=== PATIENT | male | born 1990 | race African-American/Black ===

== ENCOUNTER 2017-12-07 08:38 | Emergency (ER) | payer SELFPAY | END 2017-12-07 11:50 | disposition home or self-care (01) | LOC: D.ER 08:38 | DX: J11.1 Influenza due to unidentified influenza virus with other respiratory manifestations (principal) ==

== ENCOUNTER 2018-11-12 09:04 | Emergency (ER) | payer OTHER ==
[~2018-11-12] VITALS: Ht 167.6 cm; Wt 79.5 kg
[2018-11-12 09:17] VITALS: Ht 167.6 cm; Wt 79.5 kg
[2018-11-12 10:12] LABS: BASOPHILS 0.3 % (0-2); EOSINOPHILS 2.2 % (0-7); HEMATOCRIT 40.4 % (42.0-54.0); HEMOGLOBIN 14.4 g/dL (13.5-17.5); IMMATURE GRANULOCYTES 0.3 % (0-5); LYMPHOCYTES 29.8 % (15-50); MCH 29.3 pg (26.0-34.0); MCHC 35.6 g/dL (31.0-37.0); MCV 82.1 fL (80.0-100.0); MEAN PLATELET VOLUME 9.8 fL (7.4-10.4); MONOCYTES 6.4 % (2-11); PLATELET COUNT 187 10x3/uL (130-400); RBC 4.92 10x6/uL (4.20-6.10); RDW 12.8 % (11.5-14.5); WBC 6.4 10x3/uL (4.8-10.8)
[2018-11-12 10:15] LABS: PROTIME 12.7 SECONDS (11.6-15.0)
[2018-11-12 10:20] LABS: ALBUMIN 3.3 g/dL (3.4-5.0); ALKALINE PHOSPHATASE 72 U/L (46-116); ALT (SGPT) 21 U/L (10-68); BILIRUBIN - TOTAL 0.36 mg/dL (0.2-1.3); CALC OSMOLALITY 276 mosm/kg (275-300); CARBON DIOXIDE 26.8 mmol/L (21.0-32.0); CHLORIDE - SERUM 104 mmol/L (98-107); CREATININE - SERUM 0.9 mg/dL (0.6-1.3); GLUCOSE 101 mg/dL (74-106); POTASSIUM - SERUM 3.5 mmol/L (3.5-5.1); PROTEIN - SERUM 6.6 g/dL (6.4-8.2); SODIUM 139 mmol/L (136-145); UREA NITROGEN 11 mg/dL (7-18); eGFR NON AFRICAN AMERICAN > 90 mL/min (90-120)
[2018-11-12 10:30] LABS: CKMB 0.5 U/L (0.0-3.6); CREATINE KINASE 147 UL (21-232); MAGNESIUM - SERUM 1.7 mg/dL (1.8-2.4)
[2018-11-12 10:32] LABS: TROPONIN-I < 0.017 ng/mL (0.000-0.060)
[2018-11-12] MEDS ORDERED: ZPAK PO (11:34)
[2018-11-12] MEDS ORDERED: MEDROL DOSE PACK4 MG PO (11:34)
[2018-11-12] MEDS ORDERED: ALBUTEROL SULF8.5 GM INH (11:34)
[2018-11-12 11:53] VITALS: BP 130/82
== END 2018-11-12 11:54 | disposition home or self-care (01) ==
LOC: D.ER 09:04
PROVIDERS: Family Medicine
DX: J40 Bronchitis, not specified as acute or chronic (principal); Z87.09 Personal history of other diseases of the respiratory system

== ENCOUNTER 2019-04-17 20:11 | Emergency (ER) | payer OTHER ==
[~2019-04-17] VITALS: Ht 167.6 cm; Wt 75.0 kg
[~2019-04-17 20:11] MED LIST: ALBUTEROL SULF8.5 GM INH; MEDROL DOSE PACK4 MG PO; ZPAK PO
[2019-04-17 20:35] VITALS: Ht 167.6 cm; Wt 75.0 kg
[2019-04-17] MEDS ORDERED: BUPROPION HCL150 M1 PO (20:42)
[2019-04-17] MEDS ORDERED: TRAZODONE HCL150 MG PO (20:43)
[2019-04-17] MEDS ORDERED: CARBATROL 200200 MG PO (20:43)
[2019-04-17] MEDS ORDERED: NAPROSYN500 MG PO (23:51)
[2019-04-17] MEDS ORDERED: SKELAXIN800 MG PO (23:51)
[2019-04-18 00:04] VITALS: BP 127/85
== END 2019-04-18 00:04 | disposition home or self-care (01) ==
LOC: D.ER 20:11
DX: M79.18 Myalgia, other site (principal); V43.52XA Car driver injured in collision with other type car in traffic accident, initial encounter; Y93.89 Activity, other specified; Y92.410 Unspecified street and highway as the place of occurrence of the external cause

== ENCOUNTER 2019-06-21 15:10 | Emergency (ER) | payer OTHER ==
[~2019-06-21] VITALS: Ht 167.6 cm; Wt 68.2 kg
[~2019-06-21 15:10] MED LIST changes: +BUPROPION HCL150 M1 PO; +CARBATROL 200200 MG PO; +NAPROSYN500 MG PO; +SKELAXIN800 MG PO; +TRAZODONE HCL150 MG PO
[2019-06-21 15:27] VITALS: Ht 167.6 cm; Wt 68.2 kg
[2019-06-21 16:21] LABS: UDS - AMPHET POSITIVE QUAL (NEGATIVE); UDS - BARB NEGATIVE QUAL (NEGATIVE); UDS - BENZO POSITIVE QUAL (NEGATIVE); UDS - COCAINE NEGATIVE QUAL (NEGATIVE); UDS - OPIATE NEGATIVE QUAL (NEGATIVE); UDS - PCP NEGATIVE QUAL (NEGATIVE); UDS - THC POSITIVE QUAL (NEGATIVE)
[2019-06-21 16:52] LABS: BASOPHILS 0.5 % (0-2); EOSINOPHILS 1.8 % (0-7); HEMOGLOBIN 14.1 g/dL (13.5-17.5); IMMATURE GRANULOCYTES 0.2 % (0-5); LYMPHOCYTES 32.7 % (15-50); MCH 29.5 pg (26.0-34.0); MCHC 35.3 g/dL (31.0-37.0); MCV 83.7 fL (80.0-100.0); MEAN PLATELET VOLUME 9.2 fL (7.4-10.4); NEUTROPHILS 58.8 % (40-80); RBC 4.78 10x6/uL (4.20-6.10); RDW 13.1 % (11.5-14.5)
[2019-06-21 16:55] LABS: PLATELET COUNT 231 10x3/uL (130-400)
[2019-06-21 17:14] LABS: ALBUMIN 3.3 g/dL (3.4-5.0); ALKALINE PHOSPHATASE 67 U/L (46-116); ALT (SGPT) 38 U/L (10-68); BILIRUBIN - TOTAL 0.41 mg/dL (0.2-1.3); CALC OSMOLALITY 284 mosm/kg (275-300); CALCIUM 9.2 mg/dL (8.5-10.1); CARBON DIOXIDE 31.2 mmol/L (21.0-32.0); CHLORIDE - SERUM 106 mmol/L (98-107); CREATININE - SERUM 0.9 mg/dL (0.6-1.3); GLUCOSE 76 mg/dL (74-106); POTASSIUM - SERUM 4.2 mmol/L (3.5-5.1); PROTEIN - SERUM 7.1 g/dL (6.4-8.2); SODIUM 144 mmol/L (136-145); UREA NITROGEN 10 mg/dL (7-18); eGFR NON AFRICAN AMERICAN > 90 mL/min (90-120)
[2019-06-21 17:42] VITALS: BP 127/77
== END 2019-06-21 17:43 | disposition home or self-care (01) ==
LOC: D.ER 15:10
PROVIDERS: Family Medicine
DX: R20.0 Anesthesia of skin (principal); F19.10 Other psychoactive substance abuse, uncomplicated

== ENCOUNTER 2019-06-27 12:47 | Emergency (ER) | payer OTHER ==
[~2019-06-27] VITALS: Ht 167.6 cm; Wt 75.0 kg
[2019-06-27 12:49] VITALS: Ht 167.6 cm; Wt 75.0 kg
[2019-06-27 13:21] LABS: BASOPHILS 0.4 % (0-2); EOSINOPHILS 0.5 % (0-7); HEMATOCRIT 36.8 % (42.0-54.0); HEMOGLOBIN 13.1 g/dL (13.5-17.5); IMMATURE GRANULOCYTES 0.4 % (0-5); LYMPHOCYTES 17.5 % (15-50); MCH 29.4 pg (26.0-34.0); MCHC 35.6 g/dL (31.0-37.0); MCV 82.7 fL (80.0-100.0); MEAN PLATELET VOLUME 9.3 fL (7.4-10.4); MONOCYTES 9.8 % (2-11); NEUTROPHILS 71.4 % (40-80); RBC 4.45 10x6/uL (4.20-6.10); RDW 13.6 % (11.5-14.5); WBC 8.3 10x3/uL (4.8-10.8)
[2019-06-27 13:22] LABS: PLATELET COUNT 278 10x3/uL (130-400)
[2019-06-27 13:34] LABS: APTT 26.7 SECONDS (22.8-39.4); INR 1.12 (0.85-1.17); PROTIME 13.9 SECONDS (11.6-15.0)
[2019-06-27 13:38] LABS: ALBUMIN 3.9 g/dL (3.4-5.0); ALKALINE PHOSPHATASE 71 U/L (46-116); ALT (SGPT) 37 U/L (10-68); BILIRUBIN - TOTAL 0.85 mg/dL (0.2-1.3); CALC OSMOLALITY 288 mosm/kg (275-300); CALCIUM 9.4 mg/dL (8.5-10.1); CARBON DIOXIDE 27.2 mmol/L (21.0-32.0); CHLORIDE - SERUM 106 mmol/L (98-107); POTASSIUM - SERUM 3.5 mmol/L (3.5-5.1); PROTEIN - SERUM 7.3 g/dL (6.4-8.2); SODIUM 143 mmol/L (136-145); UREA NITROGEN 20 mg/dL (7-18); eGFR NON AFRICAN AMERICAN > 90 mL/min (90-120)
[2019-06-27 13:39] LABS: GLUCOSE 118 mg/dL (74-106)
[2019-06-27] MEDS ORDERED: CYCLOBENZAPRINE10 MG PO (15:46)
[2019-06-27] MEDS ORDERED: IBUPROFEN800 MG PO (15:46)
[2019-06-27] MEDS ORDERED: ACETAMINOPHEN500 M1 PO (15:46)
[2019-06-27 16:08] VITALS: BP 122/72
== END 2019-06-27 16:09 | disposition home or self-care (01) ==
LOC: D.ER 12:47
PROVIDERS: Family Medicine
DX: M54.2 Cervicalgia (principal); Y04.2XXA Assault by strike against or bumped into by another person, initial encounter; Y93.89 Activity, other specified; Y92.89 Other specified places as the place of occurrence of the external cause

== ENCOUNTER 2019-06-29 07:12 | Emergency (ER) | payer OTHER ==
[~2019-06-29] VITALS: Ht 167.6 cm; Wt 68.2 kg
[~2019-06-29 07:12] MED LIST changes: +ACETAMINOPHEN500 M1 PO; +CYCLOBENZAPRINE10 MG PO; +IBUPROFEN800 MG PO
[2019-06-29 07:14] VITALS: Ht 167.6 cm; Wt 68.2 kg
[2019-06-29 07:44] LABS: BASOPHILS 0.3 % (0-2); EOSINOPHILS 0.3 % (0-7); HEMATOCRIT 31.7 % (42.0-54.0); HEMOGLOBIN 11.2 g/dL (13.5-17.5); IMMATURE GRANULOCYTES 0.2 % (0-5); LYMPHOCYTES 18.9 % (15-50); MCH 29.2 pg (26.0-34.0); MCHC 35.3 g/dL (31.0-37.0); MCV 82.6 fL (80.0-100.0); MEAN PLATELET VOLUME 8.9 fL (7.4-10.4); MONOCYTES 9.4 % (2-11); NEUTROPHILS 70.9 % (40-80); PLATELET COUNT 233 10x3/uL (130-400); RBC 3.84 10x6/uL (4.20-6.10); RDW 13.6 % (11.5-14.5); WBC 6.6 10x3/uL (4.8-10.8)
--- NOTE | 2019-06-29 07:54 | NUR ---
THIS NURSE ATTEMPTED TO COMPLETE SUICIDE RISK SCREENING. PATIENT IS CURRENTLY UNRESPONSIVE/DROWSY TO COMPLETE ASSESSMENT. WILL ATTEMPT AGAIN WHEN PATIENT IS MORE RESPONSIVE. NURSE AWARE.
[2019-06-29 08:13] LABS: ACETAMINOPHEN 0.7 ug/mL (10.0-30.0); ALBUMIN 3.3 g/dL (3.4-5.0); ALKALINE PHOSPHATASE 77 U/L (46-116); ALT (SGPT) 45 U/L (10-68); BILIRUBIN - TOTAL 0.48 mg/dL (0.2-1.3); CALC OSMOLALITY 285 mosm/kg (275-300); CALCIUM 8.5 mg/dL (8.5-10.1); CARBON DIOXIDE 26.5 mmol/L (21.0-32.0); CHLORIDE - SERUM 107 mmol/L (98-107); CREATININE - SERUM 0.9 mg/dL (0.6-1.3); GLUCOSE 100 mg/dL (74-106); MAGNESIUM - SERUM 1.6 mg/dL (1.8-2.4); PROTEIN - SERUM 6.7 g/dL (6.4-8.2); SODIUM 142 mmol/L (136-145); UREA NITROGEN 20 mg/dL (7-18); eGFR NON AFRICAN AMERICAN > 90 mL/min (90-120)
[2019-06-29 08:17] LABS: POTASSIUM - SERUM 2.9 mmol/L (3.5-5.1)
[2019-06-29 18:48] LABS: APPEARANCE CLEAR (CLEAR); COLOR YELLOW (YELLOW)
[2019-06-29 18:49] LABS: BILIRUBIN NEGATIVE (NEGATIVE); GLUCOSE NEGATIVE (NEGATIVE); KETONE NEGATIVE (NEGATIVE); NITRITE NEGATIVE (NEGATIVE); PROTEIN TRACE mg/dL (NEGATIVE); UROBILINOGEN NORMAL (NORMAL)
[2019-06-29 18:51] LABS: BACTERIA FEW /hpf (NONE SEEN); EPITHELIAL CELLS 0-5 /hpf (0-5); RED CELLS - URINE 0-5 /hpf (0-5); WHITE CELLS - URINE 0-5 /hpf (0-5)
[2019-06-29 19:10] LABS: UDS - AMPHET POSITIVE QUAL (NEGATIVE); UDS - BARB NEGATIVE QUAL (NEGATIVE); UDS - BENZO NEGATIVE QUAL (NEGATIVE); UDS - COCAINE NEGATIVE QUAL (NEGATIVE); UDS - OPIATE NEGATIVE QUAL (NEGATIVE); UDS - PCP NEGATIVE QUAL (NEGATIVE); UDS - THC POSITIVE QUAL (NEGATIVE)
--- NOTE | 2019-06-29 19:50 | NUR ---
DR. HAND NOTIFIED AND SITTER ORDERED. SIITER AT BEDSIDE. NOTIFIED CHARGE NURSE AND ATTENDING IN REGARDS TO ASSESSMENT FINDINGS. RESOURCES GIVEN TO PT AND SAFETY PLAN INTIATED.
[2019-06-29 20:15] LABS: ALBUMIN 3.4 g/dL (3.4-5.0); ALKALINE PHOSPHATASE 67 U/L (46-116); ALT (SGPT) 45 U/L (10-68); BILIRUBIN - TOTAL 0.73 mg/dL (0.2-1.3); CALC OSMOLALITY 284 mosm/kg (275-300); CALCIUM 8.9 mg/dL (8.5-10.1); CARBON DIOXIDE 32.5 mmol/L (21.0-32.0); CHLORIDE - SERUM 106 mmol/L (98-107); CREATININE - SERUM 0.9 mg/dL (0.6-1.3); GLUCOSE 81 mg/dL (74-106); POTASSIUM - SERUM 3.3 mmol/L (3.5-5.1); PROTEIN - SERUM 7.1 g/dL (6.4-8.2); SODIUM 143 mmol/L (136-145); eGFR NON AFRICAN AMERICAN > 90 mL/min (90-120)
[2019-06-29 20:17] LABS: UREA NITROGEN 14 mg/dL (7-18)
[2019-06-29 23:10] VITALS: BP 132/78
== END 2019-06-29 23:44 | disposition home or self-care (01) ==
LOC: D.ER 07:12
PROVIDERS: Family Medicine
DX: F19.10 Other psychoactive substance abuse, uncomplicated (principal); E87.6 Hypokalemia